=== PATIENT | male | born 1990 | race Caucasian/White ===

== ENCOUNTER → 2022-09-27 11:00 | Outpatient (CLI) | payer BC, SELFPAY ==
[2022-09-28 11:09] LABS: Basophils % 0.5 % (0.1-2.0); Eosinophils # 0.1 K/mm3 (0.0-0.4); Eosinophils % 2.4 % (0.1-12.0); Hematocrit 52.8 % (42.0-52.0); Hemoglobin 16.5 g/dL (14.1-18.0); Lymphocytes # 1.7 K/mm3 (0.7-4.5); Lymphocytes % 28.5 % (10-50); Mean Corpuscular HGB Conc 31.2 g/dL (31.8-35.4); Mean Corpuscular Hemoglobin 29.7 pg (27.0-31.2); Mean Corpuscular Volume 95.1 fl (80-94); Mean Platelet Volume 9.8 fl (7.4-10.4); Monocytes # 0.6 K/mm3 (0.1-1.0); Monocytes % 9.3 % (1.7-9.3); Neutrophils # 3.6 K/mm3 (1.8-7.8); Neutrophils % 59.4 % (37.0-80.0); Platelet Count 349 K/mm3 (142-424); Red Blood Count 5.55 M/mm3 (4.60-6.20); Red Cell Distribution Width 13.8 % (11.5-17.5); White Blood Count 6.1 K/mm3 (4.8-10.8)
[2022-09-28 11:44] LABS: Alanine Aminotransferase 47 U/L (12-78); Albumin Level 5.2 g/dl (3.5-5.0); Albumin/Globulin Ratio 1.8 (1.1-1.8); Alkaline Phosphatase 75 U/L (38-126); Anion Gap 15.9 mEq/L (5-15); Aspartate Amino Transferase 45 U/L (17-59); Bilirubin,Total 0.6 mg/dl (0.2-1.3); Blood Urea Nitrogen 11 mg/dl (9-20); Calcium 10.1 mg/dl (8.4-10.2); Carbon Dioxide 25 mmol/L (22.0-30.0); Chloride 104 mmol/L (98-107); Chol/HDL Ratio 3.6 (1-3.5); Cholesterol 258 mg/dl (140-200); Estimated Glomerular Filt Rate 98 ml/min (>60); GFR (African American) 119 ML/MIN (>60); Globulin 2.9 g/dL (1.3-3.2); Glucose 84 mg/dl (74-100); HDL Cholesterol 71 mg/dl (40-60); Potassium 4.9 mmoL/L (3.5-5.1); Sodium 140 mmol/L (136-145); Total Protein,Serum 8.1 g/dl (6.3-8.2); Triglycerides 183 mg/dl (30-150); VLDL Cholesterol 37 mg/dL (0-40)
[2022-09-28 11:56] LABS: Direct LDL Cholesterol 139.89 mg/dL (100-129)
[2022-09-28 12:02] LABS: 25-OH Vitamin D, Total 28.6 ng/mL (30-100)
[2022-09-28 12:15] LABS: Thyroid Stimulating Hormone 1.51 uIU/mL (0.465-4.68)
== END ==
PROVIDERS: PCP Physician Assistant; Visit Provider Physician Assistant
DX: Z00.00 Encounter for general adult medical examination without abnormal findings (principal); E55.9 Vitamin D deficiency, unspecified; Z79.899 Other long term (current) drug therapy
CPT/HCPCS: 80053; 80061; 82306; 84443; 85025

== ENCOUNTER 2023-03-08 16:24 | Emergency (ER) | payer BC, SELFPAY ==
[2023-03-08 16:40] VITALS: BP 131/81; PULSE 92; RESP 18; TEMP 37.1; O2SAT 98; BMI 25.9
[2023-03-08 16:48] VITALS: BP 131/81; PULSE 92; RESP 18; TEMP 37.1; O2SAT 98
[2023-03-08 16:53] LABS: UTC Influenza A Antigen Negative (Negative); UTC Influenza B Antigen Negative (Negative)
--- NOTE | 2023-03-08 17:10 | EXP.UTC ---
Discharge Plan Disposition Patient Disposition: Home, Self-Care Condition: Good Prescriptions Prescriptions: New ibsciotxsiehtum-wsjitmomo-QQ [Bromfed DM] 2-30-10 mg/5 mL Syrup 10 ml PO Q4H PRN (Reason: Cough) Qty: 200 0RF Referrals Follow up/Referrals: Genny Cooper PA [Primary Care Provider] - See instructions Activity Restrictions/Add. Instructions Additional Instructions/Restrictions: *Monitor Temp, Over the counter Motrin or Tylenol as directed/as needed Tylenol every 4 hours and Motrin every 6 hours (as long as your family doctor has told you that you can take it) for fever or pain. and straight to ER if unable to lower temp less than 101.0 after medication given *Warm salt water gargles may help to soothe the throat *Throat Lozenges? *Warm fluids like tea with honey may help to soothe the throat? *Sleep elevated *Humidifier/Vaporizer *Bromfed may cause drowsiness. Know how it effects you (your child) before driving, caring for small child, or sending your child to school. Not other antihistamines/allergy medications while taking bromfed Follow up IMMEDIATELY for new or worsening symptoms or no Noticeable improvement over the next 48-72 hours. 911 for difficulty breathing or swallowing You were tested for today for COVID19 your test result should be back in the next 24hours, you may check your results on the [facility] if your COVID is positive you must Q Clinical Impressions Clinical Impression: Viral syndrome Instructions Patient Instructions: DI for Viral Syndrome Discharge ED Provider: Yanely Moise [facility] [place] HPI General Stated complaint: Body aches,fever yesterday wants to be tested flu Mode of Arrival: Ambulatory Source of Information: Patient Limitations: No Limitations Time Seen by Provider: 03/08/23 17:10 Description of Symptoms (Recalled from Triage Doc. 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 Medical History (Updated 03/08/23 @ 17:14 by Yanely Moise APRN) No significant past medical history Family History (Updated 09/27/22 @ 13:17 by Ludivina Lujan MA) Other Cancer Hypertension Social History (Updated 09/27/22 @ 13:18 by Ludivina Lujan MA) Smoking Status: Current every day smoker tobacco type: e-cigarettes and smokeless tobacco alcohol intake: current substance use type: denies use current occupational status: employed Travel in the last 8 weeks: None ROS Obtained: Yes All systems reviewed & no additional complaints except as documented and Yes Systems reviewed as appropriate & no additional complaints except as documented Constitutional Constitutional: Reports system reviewed and no additional complaints, except as documented, Reports as per HPI, Reports body ache, Reports chills, Reports fatigue, Reports fever(s) and Reports headache(s) ENT Ears, Nose, Mouth, and Throat: Reports system reviewed and no additional complaints, except as documented, Reports as per HPI, Reports headache(s) and Reports sore throat (2 days ago but not now) Cardiovascular Cardiovascular: Reports system reviewed and no additional complaints, except as documented and Reports as per HPI Respiratory Respiratory: Reports system reviewed and no additional complaints, except as documented, Reports as per HPI and Reports cough Neurologic Neurologic: Reports headache(s) Endocrine Endocrine: Reports fatigue Physical Exam General General appearance: alert and in no apparent distress ENT ENT exam: Present mucous membranes moist Expanded ENT Exam Nose exam: Absent sinus tenderness Throat exam: Present normal inspection Respiratory Respiratory exam: Present normal lung sounds bilaterally; Absent respiratory distress or wheezes Cardiovascular Cardiovascular exam: Present regular rate, normal rhythm and normal heart sounds Abdominal Exam Abdominal exam: Present soft and normal bowel sounds; Absent distention or tenderness Neurological Exam Neurological exam: Present alert, oriented X3 and normal gait Medical Decision Making Noé Inquiry Pt receiving controlled substance: No Noé was queried for this patient: No Vital Signs: 03/08/23 16:40 03/08/23 16:48 Temperature 98.8 F 98.8 F Temperature Source Oral Pulse Rate 92 H Pulse Rate [Left Brachial] 92 H Respiratory Rate 18 18 Blood Pressure 131/81 Blood Pressure [Left Arm] 131/81 Blood Pressure Mean [Left Arm] 97 Blood Pressure Source [Left Arm] Automatic Cuff Blood Pressure Position [Left Arm] Sitting 02 Sat by Pulse Oximetry 98 Oxygen Delivery Method Room Air Lab Data Lab results reviewed: Yes I reviewed the patient's lab results. Lab Results 03/08/23 16:40: Influenza Type A Ag Negative, Influenza Type B Ag Negative Orders (Tests/Meds): ORDERS Category Date Time Status Covid-19 Nasal PCR ([facility]) Routine Lab 03/08/23 17:04 Ordered
[2023-03-09 15:55] LABS: Coronavirus 19, PCR Detected (NotDetected); Influenza A, PCR Not Detected (NotDetected); Influenza B, PCR Not Detected (NotDetected)
== END 2023-03-08 17:18 | disposition home or self-care (01) ==
PROVIDERS: Emergency Provider Nurse Practitioner; PCP Physician Assistant
DX: U07.1 COVID-19 (principal); R50.9 Fever, unspecified; R05.9 Cough, unspecified; R07.0 Pain in throat; M79.18 Myalgia, other site; R53.83 Other fatigue; F17.290 Nicotine dependence, other tobacco product, uncomplicated
CPT/HCPCS: 87635; 87636; 87804; 99204; 99212; G0463